=== PATIENT | male | born 1975 | race American Indian/Alaskan Native ===

== ENCOUNTER 2017-02-13 15:24 | Emergency (ER) | payer MEDICARE ==
[2017-02-13 15:37] VITALS: BP 150/99
--- NOTE | 2017-02-13 20:32 | Emergency Department Report ---
HPI - General Chief Complaint: Back Pain/Injury Time Seen by Provider: 02/13/17 20:31 - HPI HPI: Patient is a 41-year-old male with a past medical history of kidney stone 9 months ago and hepatitis C in 1999 presents to ED complaining of right-sided flank pain 3 weeks. Patient states about 3 weeks ago he started working and taken some weight loss supplements. Patient states about 2 weeks ago he started experiencing some right flank pain that has gotten progressively worse. Patient states the first attempt I did put a muscle bypass time goes on he feels pain deep in his right flank area. Patient states the soreness from care physician about 9 months ago was 30 and a kidney stone. Patient denies fevers/chills/nausea/vomiting/chest pain/dizziness/dysuria/ weight loss. ED Past Medical Hx - Past Medical History Hx Hypertension: No Hx Heart Attack/AMI: No Hx Congestive Heart Failure: No Hx Diabetes: No Hx Deep Vein Thrombosis: No Hx Pulmonary Embolism: No Hx Liver Disease: No Hx Renal Disease: No Hx Sickle Cell Disease: No Hx Arthritis: No Hx Seizures: No Hx Kidney Stones: No Hx Psychiatric Treatment: Yes (bipolar) Hx Asthma: No Hx COPD: No Hx Tuberculosis: No Hx Dementia: No Hx HIV: No Additional medical history: Rhabdomyolysis. Cocaine abuse - Surgical History Hx Coronary Stent: No Hx Open Heart Surgery: No Hx Pacemaker: No Hx Internal Defibrillator: No Hx Cholecystectomy: No Hx Appendectomy: Yes Hx Breast Surgery: No Additional Surgical History: bunion removal left foot. - Social History Smoking Status: Current Every Day Smoker Substance Use Type: None - Medications Home Medications: Home Medications Medication Instructions Recorded Confirmed Last Taken Type traMADol [Ultram 50 MG tab] 50 - 100 mg PO Q8HR PRN #30 tablet 10/21/13 Unknown Rx Ibuprofen [Motrin 800 MG tab] 800 mg PO TID PRN #30 tablet 08/15/14 09/04/15 Unknown Rx Methocarbamol [Robaxin] 750 mg PO BID #30 tab 08/15/14 09/04/15 Unknown Rx Clindamycin [Cleocin] 300 mg PO Q8H #30 cap 10/28/14 09/04/15 Unknown Rx Ibuprofen [Motrin] 800 mg PO Q8H PRN #60 tablet 10/28/14 09/04/15 Unknown Rx traMADol [Ultram] 50 mg PO Q6HR PRN #14 tablet 10/28/14 09/04/15 Unknown Rx Celecoxib 50 mg PO DAILY #20 capsule 02/13/17 Unknown Rx ED Review of Systems ROS: Stated complaint: RIGHT SIDE PAIN Other details as noted in HPI Constitutional: denies: chills, fever Eyes: denies: eye pain, eye discharge, vision change ENT: denies: ear pain, throat pain Respiratory: denies: cough, shortness of breath, wheezing Cardiovascular: denies: chest pain, palpitations Endocrine: no symptoms reported Gastrointestinal: denies: abdominal pain, nausea, vomiting, diarrhea Genitourinary: denies: urgency, dysuria, frequency, hematuria, discharge, testicular pain, testicular mass Musculoskeletal: denies: back pain, joint swelling, arthralgia Skin: denies: rash, lesions, pruritus Neurological: denies: headache, weakness, paresthesias Psychiatric: denies: anxiety, depression Hematological/Lymphatic: denies: easy bleeding, easy bruising Physical Exam - Physical Exam Vital Signs: Vital Signs 02/13/17 15:34 Temperature 98.0 F Pulse Rate 76 Respiratory 16 Rate Blood Pressure 150/99 O2 Sat by Pulse 99 Oximetry Physical Exam: GENERAL: Alert and oriented x3, no apparent distress, Normal Gait, atraumatic. HEAD: Head is normocephalic and a-traumatic. EYES: Extra ocular muscles are intact. Pupils are equal, round, and reactive to light and accommodation. No jaundice and sclera clear and no erythema NECK: Supple. Non edematous, No carotid bruits. No lymphadenopathy or thyromegaly. No C-spine tenderness LUNGS: Symetrical with respiration, No wheezing, no rales or crackles, CTAB. HEART: S1, S2 present, regular rate and rhythm without murmur, no rubs, no gallops. Non tender to palpation ABDOMEN: No organomegaly was noted, obese rounded abdomen Positive bowel sounds , soft, and non-distended. No ecchymosis . Right mid quadrant of the abdomen tender to palpation. NO CVA tenderness. BACK: Full range of motion, no spinal tenderness, nontender to palpation. EXTREMITIES/MUSCULOSKELETAL: No cyanosis, clubbing, rash, lesions or edema. Full ROM bilaterally. UE/LE Pulses 2+ bilaterally. LE and UE 5+ strength bilaterally, straight leg raise negative bilaterally NEUROLOGIC: The patient is cooperative with no focal neurologic deficits. Cranial nerves II through XII are grossly intact. Normal speech. PSYCHIATRIC: Mood is congruent with affect, denies suicidal or homicidal ideations. SKIN: Warm and dry, No lesions, No ulceration or induration present. ED Course Vital Signs 02/13/17 15:34 Temperature 98.0 F Pulse Rate 76 Respiratory 16 Rate Blood Pressure 150/99 O2 Sat by Pulse 99 Oximetry ED Medical Decision Making - Radiology Data Radiology results: report reviewed, image reviewed FINAL REPORT PROCEDURE: CT ABDOMEN PELVIS WO CON TECHNIQUE: Computerized axial tomography of the abdomen and pelvis was performed without intravenous contrast. This study is performed without intravascular contrast material and its sensitivity for abdominal and pelvic pathology, including neoplasms, inflammation, abscess, free fluid, thrombosis, arterial dissection and infarction, is reduced compared with a contrast enhanced study. HISTORY: RQ abdominal pain COMPARISON: No prior studies are available for comparison. FINDINGS: Lower Lung humphrey: There is minimal dependent atelectasis. Lung bases otherwise are unremarkable. Upper Abdomen: The liver, the gallbladder, the spleen pancreas and adrenal glands are unremarkable. Kidneys, Ureters and Urinary bladder: Kidneys and ureters are unremarkable. No masses calculi or hydronephrosis are seen. Urinary bladder is only partially filled and shows no abnormality. Retroperitoneum: Atherosclerotic changes are seen in the abdominal aorta. No aneurysm is visualized. Nonspecific subcentimeter lymph nodes are seen in the retroperitoneum. No pathologically enlarged lymph nodes are identified. Bowel: Mild diverticulosis seen in the sigmoid colon without evidence of diverticulitis. There is also mild diverticulosis in the descending colon. The appendix is not visualized. There is no inflammatory change seen in the right lower quadrant to suggest appendicitis. Small umbilical hernia visualized containing adipose tissue. No herniated loops bowel are seen. No ascites or free intraperitoneal gas is seen. Reproductive organs: Prostate gland does not appear to be enlarged. Other: No acute bony abnormalities are seen. IMPRESSION: There is colonic diverticulosis without evidence of diverticulitis. Small umbilical hernia present as described. No other abnormalities are seen.. - Medical Decision Making Review of present presents with ED course: Analysis, CT of the abdomen and pelvis ordered Urinalysis shows negative findings, moderate blood Critical care attestation.: If time is entered above; I have spent that time in minutes in the direct care of this critically ill patient, excluding procedure time. ED Disposition Clinical Impression: Diverticulosis large intestine w/o perforation or abscess w/o bleeding Disposition: TO HOME OR SELFCARE Is pt being admited?: No Does the pt Need Aspirin: No Condition: Stable Instructions: Diverticulosis Diet (ED), Diverticulosis (ED) Additional Instructions: Follow-up with GI Follow-up which your primary care Full instructions on diet Prescriptions: Celecoxib 50 mg PO DAILY #20 capsule Referrals: MAY FIERRO MD [Primary Care Provider] - 3-5 Days KIA ASHBY MD [Staff Physician] - 3-5 Days KENNEDY WILDE MD [Staff Physician] - 3-5 Days DYANA TIRADO MD [Staff Physician] - 3-5 Days CAMERON OZUNA MD [Staff Physician] - 3-5 Days Forms: Accompanied Note, Work/School Release Form(ED) Time of Disposition: 23:13
[2017-02-13 20:35] LABS: Bilirubin,Urine NEG (Negative); Blood,Urine MOD (Negative); Ketones,Urine NEG (Negative); Leukocyte Esterase,Urine NEG (Negative); Mucus,Urine FEW /HPF; Nitrite,Urine NEG (Negative); Protein,Urine <15 mg/dL mg/dL (Negative); Urobilinogen,Urine < 2.0 mg/dL (<2.0); WBC,Urine < 1.0 /HPF (0.0-6.0)
[2017-02-13] MEDS ORDERED: ZOFRAN PO ONE (21:53)
[2017-02-13] MEDS ORDERED: ZOFRAN ODT PO ONE (22:21)
--- NOTE | 2017-02-13 22:47 | Cat Scan Report ---
FINAL REPORT PROCEDURE: CT ABDOMEN PELVIS WO CON TECHNIQUE: Computerized axial tomography of the abdomen and pelvis was performed without intravenous contrast. This study is performed without intravascular contrast material and its sensitivity for abdominal and pelvic pathology, including neoplasms, inflammation, abscess, free fluid, thrombosis, arterial dissection and infarction, is reduced compared with a contrast enhanced study. HISTORY: RQ abdominal pain COMPARISON: No prior studies are available for comparison. FINDINGS: Lower Lung humphrey: There is minimal dependent atelectasis. Lung bases otherwise are unremarkable. Upper Abdomen: The liver, the gallbladder, the spleen pancreas and adrenal glands are unremarkable. Kidneys, Ureters and Urinary bladder: Kidneys and ureters are unremarkable. No masses calculi or hydronephrosis are seen. Urinary bladder is only partially filled and shows no abnormality. Retroperitoneum: Atherosclerotic changes are seen in the abdominal aorta. No aneurysm is visualized. Nonspecific subcentimeter lymph nodes are seen in the retroperitoneum. No pathologically enlarged lymph nodes are identified. Bowel: Mild diverticulosis seen in the sigmoid colon without evidence of diverticulitis. There is also mild diverticulosis in the descending colon. The appendix is not visualized. There is no inflammatory change seen in the right lower quadrant to suggest appendicitis. Small umbilical hernia visualized containing adipose tissue. No herniated loops bowel are seen. No ascites or free intraperitoneal gas is seen. Reproductive organs: Prostate gland does not appear to be enlarged. Other: No acute bony abnormalities are seen. IMPRESSION: There is colonic diverticulosis without evidence of diverticulitis. Small umbilical hernia present as described. No other abnormalities are seen..
[2017-02-13] MEDS ORDERED: FLEXERIL PO ONE (23:30)
[2017-02-13] MEDS ORDERED: TORADOL IM ONE (23:30)
== END 2017-02-13 23:20 | disposition home or self-care (01) ==
LOC: ED 15:24
DX: K57.30 Diverticulosis of large intestine without perforation or abscess without bleeding (principal); F31.9 Bipolar disorder, unspecified; F17.200 Nicotine dependence, unspecified, uncomplicated
CPT/HCPCS: 74176; 81001; 96372; 99284; J1885; Q0162